=== PATIENT | male | born 1980 | race Caucasian/White ===

== ENCOUNTER 2022-09-16 00:14 | Emergency (ER) | payer MEDICAID ==
[~2022-09-16] VITALS: Ht 172.7 cm; Wt 102.1 kg
[2022-09-16 00:20] VITALS: BP_SYST 124
[2022-09-16] MEDS ORDERED: LIDOCAINE 2%, 20 ML MDV INJ ONE (00:45)
[2022-09-16] MEDS ORDERED: DIPHTH,PERTUSS(ACELL),TET VAC 0.5 ML VIAL (Tdap) I.M. ONE (01:15)
[2022-09-16] MEDS ORDERED: BACI15OI13 TP (01:58)
[2022-09-16] MEDS ORDERED: BACITRACIN 1 GM OINT TP ONE ×2 (02:00→02:04)
[2022-09-16 02:16] VITALS: BP_SYST 136
== END 2022-09-16 02:16 | disposition home or self-care (01) ==
LOC: SED 00:14
DX: S61.211A Laceration without foreign body of left index finger without damage to nail, initial encounter (principal); Z88.5 Allergy status to narcotic agent; Z79.899 Other long term (current) drug therapy; W26.8XXA Contact with other sharp object(s), not elsewhere classified, initial encounter; Y93.89 Activity, other specified; Y92.89 Other specified places as the place of occurrence of the external cause; Y99.8 Other external cause status
CPT/HCPCS: 99283; 73140; 90715; 90471; 12001; J2001